=== PATIENT | female | born 1985 | race Caucasian/White ===

== ENCOUNTER → 2016-07-12 | Outpatient (CLI) | payer OTHER ==
[2016-07-12 11:47] LABS: CH 33.2; CHCM 32.9; HCT 38.7 % (34.0-46.0); HDW 2.12; HGB 12.7 gm/dL (11.4-16.0); MCH 33.4 pg (25.0-35.0); MCHC 32.9 g/dL (31.0-37.0); MCV 101.5 fL (80.0-100.0); Macrocytosis Slight; Mean Platelet Volume 6.9; RBC 3.81 m/uL (3.80-5.40); RDW 13.1 % (11.5-15.5); WBC 10.6 k/uL (3.8-10.6)
[2016-07-12 12:01] LABS: ALT 30 U/L (9-52); AST 23 U/L (14-36); Alkaline Phosphatase 35 U/L (38-126); Anion Gap 10 mmol/L; Blood Urea Nitrogen 20 mg/dL (7-17); C Reactive Protein 15.7 mg/L (<10.0); Carbon Dioxide 21 mmol/L (22-30); Chloride 108 mmol/L (98-107); Creatine Kinase 69 U/L (30-135); Glucose 94 mg/dL (74-99); Magnesium 1.8 mg/dL (1.6-2.3); Non-African American GFR(MDRD) >60 (>60 ml/min/1.73 sqM); Potassium 4.1 mmol/L (3.5-5.1); Sodium 139 mmol/L (137-145); Total Bilirubin 0.4 mg/dL (0.2-1.3)
[2016-07-12 12:36] LABS: Hemoglobin A1C 5.7 % (4.2-6.1)
[2016-07-12 12:47] LABS: Vitamin B12 316 pg/mL (239-931)
[2016-07-12 13:13] LABS: Erythrocyte Sedimentation Rate 4 mm/hr (0-20)
[2016-07-12 16:35] LABS: ANA w/Reflex to Titer NEGATIVE (NEGATIVE)
[2016-07-13 05:20] LABS: Cyclic Citrullinated Pep IgG 5 UNITS (<20)
[2016-07-14 14:36] LABS: Vitamin E (Alpha Tocopherol) 813 ug/dL (500-1800)
[2016-07-15 14:39] LABS: Scleroderma 70 Antibody 6 UNITS (<20)
[2016-07-20 19:02] LABS: Nicotinamide 20 ng/mL; Nicotinic Acid None Detected; Nicotinuric Acid None Detected
[2016-07-20 22:33] LABS: Vitamin K 907 pg/mL (80-1160)
[2016-07-23 07:40] LABS: Mis test requested (Blood) PM-Scl Antibody
== END | disposition home or self-care (01) ==
LOC: LABWHC1 11:06
PROVIDERS: ATTEND Psychiatry & Neurology Neurology
DX: G89.29 Other chronic pain (principal)
CPT/HCPCS: 36415; 80053; 82306; 82550; 82607; 83036; 83516; 83519; 83735; 84207; 84425; 84446; 84590; 84591; 84597; 85027; 85652; 86038; 86140; 86200; 86225; 86235

== ENCOUNTER → 2016-12-19 | Outpatient (CLI) | payer OTHER ==
--- NOTE | 2016-12-19 12:50 | MR ---
EXAMINATION TYPE: MR brain wo/w con DATE OF EXAM: 12/19/2016 COMPARISON: 08/13/2012 HISTORY: Headaches, visual disturbance, possible MS TECHNIQUE: Multiplanar, multisequence images of the brain and brainstem is performed without and with IV contras t, utilizing 7 mL intravenous Gadavist . FINDINGS: Diffusion weighted images demonstrate no evidence of a recent infarct or other diffusion ab normality. There is no extra-axial fluid collection or significant white matter signal abnormality. The ventricular system and cisternal spaces are normal in size and appearance. The brain volume is age appropriate. Midline structures demonstrate normal morphology. The cerebellar tonsils appear low-lying in position without evidence of discrete Chiari malformation or tonsillar beaking. Post contrast images demonstrate no abnormal enhancement. The dural venous sinuses appear patent. The visualized sinuses are clear and the globes are intact. There is a stable appearing venous angioma within the left parietal lobe. Changes of mild chronic sin usitis noted. WHITE MATTER: No abnormal signal noted within the visualized white matter. IMPRESSION: 1. No acute process. 2. chronic mild sinusitis. 3. incidental note made of a left parietal venous angioma stable appearance.
== END | disposition home or self-care (01) ==
LOC: RADMRIMAIN 11:27
PROVIDERS: ATTEND Psychiatry & Neurology Neurology
DX: R51 Headache (principal); J32.9 Chronic sinusitis, unspecified
CPT/HCPCS: 70553; A9581

== ENCOUNTER → 2017-07-04 | Outpatient (CLI) | payer OTHER ==
--- NOTE | 2017-07-04 16:50 | MR ---
EXAMINATION TYPE: MR lumbar spine wo con DATE OF EXAM: 07/04/2017 COMPARISON: 08/13/2012 HISTORY: Cervicalgia / Low back pain TECHNIQUE: T1 and T2 axial and sagittal images of the lumbar spine are submitted. FINDINGS: There is no abnormal signal seen within the visualized spinal cord or paraspinal soft tissu es. At L1-2 there is no degenerative disc disease, disc herniation, canal stenosis or foraminal encroachm ent. At L2-3 there is no degenerative disc disease, disc herniation, canal stenosis or foraminal encroachm ent. At L3-4 there is broad-based central disc bulging. There is hypertrophy of the ligamentum flavum. No foraminal encroachment or canal stenosis At L4-5 there is broad-based central disc bulging with mild effacement of thecal sac. No foraminal en croachment. Hypertrophy of the ligamentum flavum noted. At L5-S1 there is central disc bulging with facet arthropathy. No canal stenosis or foraminal encroac hment. IMPRESSION: 1. Central disc bulging at L3-4, L4-5 and L5-S1 with mild effacement of thecal sac but no evidence of foraminal encroachment. No significant interval change. EXAMINATION TYPE: MR cervical spine wo con DATE OF EXAM: 07/04/2017 COMPARISON: 08/13/2012 HISTORY: Cervicalgia / Low back pain TECHNIQUE: T1 sagittal and coronal, T2 sagittal, and gradient echo axial views of the cervical spine are submitted. FINDINGS: The cranial cervical junction is preserved. Motion artifact limits assessment for abnormal signal in the spinal cord. At C2-3 there is No evidence for degenerative disc disease. No disc bulge/herniation or protrusion. N o Canal stenosis. Foramina are patent bilaterally. At C3-4 there is No evidence for degenerative disc disease. No disc bulge/herniation or protrusion. N o Canal stenosis. Foramina are patent bilaterally. At C4-5 there is No evidence for degenerative disc disease. No disc bulge/herniation or protrusion. N o Canal stenosis. Foramina are patent bilaterally. At C5-6 there is No evidence for degenerative disc disease. No disc bulge/herniation or protrusion. N o Canal stenosis. Foramina are patent bilaterally. At C6-7 there is No evidence for degenerative disc disease. Borderline posterior disc bulging. No ta dence for herniation or protrusion. No Canal stenosis. Foramina are patent bilaterally. At C7-T1 there is No evidence for degenerative disc disease. No disc bulge/herniation or protrusion. No Canal stenosis. Foramina are patent bilaterally. IMPRESSION: 1. Stable minimal central disc bulging C6-C7 with no canal stenosis or foraminal encroachment. 2. Question a posterior right thyroid lobe nodule which could be correlated with ultrasound.
== END | disposition home or self-care (01) ==
LOC: RADMRIMAIN 12:23
PROVIDERS: ATTEND Psychiatry & Neurology Pain Medicine
DX: M50.223 Other cervical disc displacement at C6-C7 level (principal); M51.27 Other intervertebral disc displacement, lumbosacral region
CPT/HCPCS: 72141; 72148

== ENCOUNTER → 2017-07-17 | Outpatient (CLI) | payer OTHER ==
--- NOTE | 2017-07-17 09:59 | US ---
EXAMINATION TYPE: US thyroid st tissue head/neck DATE OF EXAM: 07/17/2017 COMPARISON: MRI C-Spine dated 07/04/2017 CLINICAL HISTORY: E04.1 Thyroid Nodule. GLAND SIZE: Right Lobe: 4.9 x 1.7 x 1.3 cm Overall Parenchyma: homogenous Left Lobe: 4.6 x 1.3 x 1.4 cm Overall Parenchyma: homogeneous Isthmus Thickness: 0.2 cm NODULES RIGHT: # of nodules measured on right: 0 LEFT: # of nodules measured on left: 2 1. 0.3 X 0.1 x 0.2 cm cystic nodule at the mid pole with well-defined margins. This nodule is wide r than tall and shows no intranodular vascularity. Prior size: no prior 2. 0.4 X 0.2 x 0.6 cm mixed nodule at the upper pole with well-defined margins. This nodule is wide r than tall and shows intranodular vascularity. Prior size: no prior ISTHMUS: # of nodules measured in the isthmus: 0 Bilateral neck scanned, no evidence of lymphadenopathy. Thyroid gland is normal in size with a few small nodules left thyroid lobe marked by technologist. IMPRESSION: Normal-sized thyroid without greater than 1 cm solid or cystic nodule appreciated bilaterally.
== END | disposition home or self-care (01) ==
LOC: RADUSWWP 09:14
PROVIDERS: ATTEND Family Medicine
DX: E04.1 Nontoxic single thyroid nodule (principal); Z01.818 Encounter for other preprocedural examination
CPT/HCPCS: 76536; 93005

== ENCOUNTER → 2018-08-13 | Outpatient (CLI) | payer MEDICARE, OTHER | END | disposition home or self-care (01) | LOC: LABWHC1 12:57 | PROVIDERS: ATTEND Psychiatry & Neurology Pain Medicine | DX: Z51.81 Encounter for therapeutic drug level monitoring (principal) | CPT/HCPCS: 36415; 93005 ==

== ENCOUNTER → 2018-09-16 | Outpatient (CLI) | payer MEDICARE, OTHER ==
[2018-09-16 15:51] LABS: Iron Saturation 28.05 (12.00-45.00)
[2018-09-16 16:12] LABS: Folate, Serum 18.6 ng/mL
[2018-09-16 16:54] LABS: T4, Free (Free Thyroxine) 0.7 ng/dL (0.80-1.80)
[2018-09-18 13:20] LABS: Vit B1(Thiamine) 87 ug/L (38-122)
== END | disposition home or self-care (01) ==
LOC: LABWHC1 10:13
PROVIDERS: ATTEND Psychiatry & Neurology Pain Medicine
DX: R53.83 Other fatigue (principal)
CPT/HCPCS: 36415; 82607; 82728; 82746; 83540; 83550; 84207; 84425; 84439; 84443; 84466; 84481; 84591

== ENCOUNTER → 2021-04-26 | Outpatient (CLI) | payer MEDICARE, OTHER ==
[2021-04-26 15:03] VITALS: BP 137/76; PULSE 115; RESP 18; TEMP 98.6
--- NOTE | 2021-04-26 15:14 | P.PAINCN ---
History of Present Illness - Reason for Consult Consult date: 04/26/21 Lumbar back pain - Chief Complaint Lumbar back pain - History of Present Illness Ms. Jewell is a 36 -year-old pleasant female came to the [facility] pain clinic along with her mother for lumbar back pain evaluation . Patient was very anxious . KERI from our pain clinic was present during the entire interview, physical exam, and medical decision making process. Patient has ongoing pain for many years patient had history of fibromyalgia, arthritis. Patient was following with Dr Wilber Cartwright. Patient had intrathecal pain pump for chronic pain control, last ITpump refill was more than a year ago as per patient. Patient describes pain is aching, throbbing, constant type of pain. Pain is radiating to bilateral lower extremity. Patient rated pain levels are 8-9 out of 10 in severity. With the help of medications pain levels are 7 out of 10 in severity. Activities making pain worse. Medications, resting, physical therapy, interventional procedures helping in relieving patient's pain. Patient pain some days better than others. Overall activities decreased secondary to pain. Because of the pain sometimes patient is feeling lack of sleep, interest, and energy. Denied any side effects with the medications. Denied any bowel or bladder problems at this time. Patient denies any suicidal or homicidal ideations intent or plan. Patient denies any auditory or visual hallucinations. Patient denied any red flag symptoms related to pain. As per patient she tried multiple intervention procedures, physical therapy, infusion therapies, multiple medication therapy in the past. Which helped marginal pain relief. Review of Systems All systems: negative Constitutional: Denies chills, Denies fever Eyes: denies blurred vision, denies pain Ears, nose, mouth and throat: Denies headache, Denies sore throat Cardiovascular: Denies chest pain, Denies shortness of breath Respiratory: Denies cough Gastrointestinal: Denies abdominal pain, Denies diarrhea, Denies nausea, Denies vomiting Genitourinary: Denies dysuria, Denies hematuria Musculoskeletal: Reports low back pain, Reports myalgias, Reports shooting leg pain Integumentary: Denies pruritus, Denies rash Neurological: Reports numbness, Reports weakness (Anxiety) Psychiatric: Denies anxiety, Denies depression Endocrine: Denies fatigue, Denies weight change Past Medical History Past Medical History: Asthma, Fibromyalgia, Neurologic Disorder, Osteoarthritis (OA), Rheumatoid Arthritis (RA) Additional Past Medical History / Comment(s): DDD, DJD. HAS PAIN PUMP INSERTED- HAS BEEN EMPTY FOR OVER A YEAR History of Any Multi-Drug Resistant Organisms: None Reported Past Surgical History: Joint Replacement, Orthopedic Surgery Additional Past Surgical History / Comment(s): OVARIAN CYST REMOVED. 17 KNEES SX. LT TKA. LT SHOULDER REPAIR. PAIN INJECTIONS. MEDTRONIC PAIN PUMP INSERTION AND REVISION. EPIDURAL INJECTIONS-NUMEROUS Past Anesthesia/Blood Transfusion Reactions: No Reported Reaction Smoking Status: Current every day smoker - Past Family History Father Family Medical History: Unable to Obtain Mother Family Medical History: Asthma Medications and Allergies Home Medications Medication Instructions Recorded Confirmed Type Ibuprofen [Motrin Ib] 200 mg PO Q8H PRN 04/25/21 04/25/21 History Naproxen Sodium [Aleve] 220 mg PO DAILY PRN 04/25/21 04/25/21 History Allergies Allergy/AdvReac Type Severity Reaction Status Date / Time WHOOPING COUGH VACCINE Allergy Unknown Uncoded 04/25/21 12:52 Childhood Physical Exam General: Well-developed, well-nourished, no acute distress HEENT: Normocephalic, and atraumatic Neck: Supple, no neck swelling Psychiatric: Appropriate mood, and affect 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 Sensation grossly intact Lower extremity: Normal strength, and decreased range of motion secondary to pain. Sensation grossly intact Lumbar spine: Paravertebral tenderness: positive Lumbar facet load test : positive Sacroiliac joint tenderness: Positive Thigh thrust test: Unable to perform secondary to pain SI joint compression test: Unable to perform secondary to pain Fabere test: Unable to perform secondary to pain Results Comments: MRI of the lumbar spine done on 07/04/2017 showed Central disc bulge at L3-L4, L4-L5, and L5-S1 with mild effacement of the thecal sac but no evidence of foraminal encroachment. No significant interval changes Assessment and Plan Assessment: Fibromyalgia, generalized body pain Lumbar spondylosis without myelopathy Lumbar radiculopathy Extreme anxiety Tobacco dependence smoking cigarettes Plan: #1 Diagnoses, prognosis, and multiple treatment options including but not limited to physical therapy, interventional therapy, adjunct medication therapy, narcotic medication, and surgical options were discussed with the patient. And all questions were answered to the patient's satisfaction. #2 treatment plan agreement : Patient was thoroughly discussed regarding the treatment options, alternatives, and importance of exercises as tolerated. Patient clearly understood. #3 Patient was counseled on importance of regular exercise. Including matthew chi, aerobic exercises as tolerated. Which helps for chronic pain, and overall well- being. Patient also counseled regarding importance of weight control rolling chronic pain, and overall other health issues. By altering diet habits, minimizing sugar intake, and processed foods helps in minimizing Inflammation. Also discussed with the patient regarding intermittent fasting. Patient counseled regarding smoking associated with chronic pain, worsening inflammation, and smoking effects on liver, and medication metabolism. And encouraged to stop smoking. #4 investigations: MAPS- reviewed , urine drug test- not done #5 diagnostic tests: None #6 consultation : Physical therapy , and psychology evaluation for chronic pain, and anxiety # 7 interventional procedures: L5-S1 epidural steroid injection . Procedure, complications, alternatives discussed with the patient. #8 medications #1 Motrin 800 mg by mouth every 8 hours as needed dispense 90 with no refill patient recommended to drink plenty of water to minimize kidney insult, and recommended to take off the intake of food to minimizing gastric irritation #2 magnesium oxide 400 mg by mouth daily #3 baclofen 10 mg by mouth every 8 hours as needed for muscle spasm dispense 90 with no refill Medication side effects, complications, long-term consequences discussed with the patient. Patient recommended to contact the pain clinic if noticed any issues with given medications. #9 morphine milligrams equivalents dose ( MME) per day: 0 from the pain clinic. # 10 TENS unit's, and percussion massage device #11 disposition: scheduled to follow up with pain clinic in 4 weeks duration. Time with Patient: Greater than 30 PQRS Measure Charge Sheet Measure #130: Documentation of Current Meds in Medical Chart: Patient's medications documented in chart Measure #226: Tobacco Use: Screen & Cessation Intervention: Pt screened for tobacco use AND intervention given Measure #111: Pneumonia Vaccination: Pneumococcal vaccine NOT administered or previously given Measure #47: Advance Care Plan: Advance care planning discussed & documented, pt chose/unable to give Measure #412: Opioid Treatment Agreement: No documentation of signed opioid treatment agreement Measure #408: Opioid Therapy Follow-up Evaluation: Patient had NO f/u eval minimum every 3 months during opioid therapy Measure #317: Preventitive Care & Scrn High Bld Press & F/U: Normal blood pressure, f/u not required Measure #128: Body Mass Index (BMI) Screening & Follow-up: BMI documented within normal parameters Measure #131: Pain Assessment & Follow-up: Pain positive & plan documented Measure #431: Unhealthy Alcohol Use Preventative Care & Scrn: Patient not identified as an unhealthy alcohol user PQRS Narrative: Smoking Status Current every day smoker Pain Intensity [Lower Back] 10 Scale Used Numeric (1 - 10) Hx Alcohol Use (MH) No Home Medications: Ambulatory Orders Ibuprofen [Motrin Ib] 200 mg PO Q8H PRN 04/25/21 Naproxen Sodium [Aleve] 220 mg PO DAILY PRN 04/25/21
== END ==
LOC: PNWHC3 13:06
DX: M79.7 Fibromyalgia (principal); M47.26 Other spondylosis with radiculopathy, lumbar region; F41.9 Anxiety disorder, unspecified; J45.909 Unspecified asthma, uncomplicated; M19.90 Unspecified osteoarthritis, unspecified site; M06.9 Rheumatoid arthritis, unspecified; F17.200 Nicotine dependence, unspecified, uncomplicated; Z79.1 Long term (current) use of non-steroidal anti-inflammatories (NSAID); Z88.7 Allergy status to serum and vaccine
CPT/HCPCS: 99211

== ENCOUNTER 2021-06-28 11:42 | Day surgery (SDC) | payer MEDICARE, OTHER ==
[2021-06-08 16:17] VITALS: BMI 19.7
[~2021-06-28 11:42] MED LIST: LACTATED RINGERS 1,000 ML IV SCH; LIDOCAINE 1% (10MG/ML) FOR IV START INTRADERMA PRN
[2021-06-28 12:02] VITALS: RESP 17; TEMP 97.8
[2021-06-28] MEDS ORDERED: MIDAZOLAM 2 MG/2 ML VIAL ONE (12:10)
[2021-06-28] MEDS ORDERED: fentaNYL (PF) 50 MCG/ML 2 ML AMP ONE (12:10)
[2021-06-28] MEDS ORDERED: IOPAMIDOL M200 10 ML VIAL ONE (12:10)
[2021-06-28] MEDS ORDERED: methylPREDNISolone ACETATE 40 MG/ML 1 ML VIAL ONE (12:10)
--- NOTE | 2021-06-28 12:25 | P.PCN ---
Date of Procedure: 06/28/21 Procedure(s) Performed: PREOPERATIVE DIAGNOSIS: 1- Lumbar radiculopathy 2-Lumbar spondylosis with Facet arthropathy without myelopathy POSTOPERATIVE DIAGNOSIS: Same as preop diagnosis. PROCEDURE 1. Lumbar epidural steroid injection under fluoroscopic guidance at the L5-S1 le arie. (Fluoroscopy imaging was available in radiology department) 2. Lumbar epidurogram. ANESTHESIA: Local with 1% lidocaine 3 ml and , moderate sedation with intravenous Versed 2 mg ,and fentanyle 100 Mcg EBL: Minimal PROCEDURE INDICATION: The patient with low back pain and radiculitis symptoms unresponsive to conservative treatment. Fluoroscopy was used to optimize visualization of the needle placement and to maximize safety. PROCEDURE DESCRIPTION / TECHNIQUE: The patient was seen and identified in the preoperative area. Risks, benefits, complications including but not limited to infections ,bleeding ,allergic reaction to the medications ,nerve damage and not complete pain releife , and alternatives were discussed with the patient. The patient agreed to proceed with the procedure and signed the consent. IV was started, and vital signs were stable. Patient was taken to the OR and time out was completed. The patient was placed in the prone position on procedure table and a pillow was placed under the abdomen to reduce lumbar lordosis. The lumbosacral area was prepped and draped in the usual sterile fashion.ere closely monitored during the procedure. Conscious sedation was used during the procedure to decrease patients anxiety. Vital signs was monitered during the entire procedure. Using anterior-posterior fluoroscopy, the L5-S1 interlaminar space was identi fied and the skin over this site was marked and then infiltrated with 1% lidocaine subcutaneously. Subsequently, a 20-gauge Tuohy epidural needle was inserted and advanced toward the epidural space using the ``Loss of resistance technique and guided by AP and lateral fluoroscopy. The correct needle position in the epidural space was verified with the injection of 2 mL of the water soluble contrast dye Isovue 200 contrast and observing an excellent epidurogram with the epidural spread of the dye, after negative aspiration for blood and CSF and in the absence of paresthesias. Again after negative aspiration, a 6 ml mixture containing 80 mg of Depo-medrol , and 2 ml of preservative free Normal Saline, and 2 ml of preservative free lidocaine 1% solution was injected and a washout of epidurogram was seen. Needle was withdrawn intact, skin was cleansed, and bandages were applied. COMPLICATIONS: None DISPOSITION / PLANS: The patient was placed in a supine position and transferred to the recovery area in a stable condition for observation. There was no evidence of lower extremity motor or sensory deficit after the procedure. Patient was discharged from the recovery room after meeting discharge criteria. Home discharge instructions were given to the patient by the staff. The patient was reexamined prior to discharge. The patient will schedule a follow up in the clinic in 2-4 weeks. note= patient had intrathecal pain pump, placed several years ago, and patient is not on any medication intrathecally, and she wished to have the pump removed, I will refer patient to Dr. Underwood , neurosurgy, for evaluation for removal of intrathecal pain pump
[2021-06-28] MEDS ORDERED: IV FLUID CONTINUATION 1,000 ML IV ONE (12:30)
[2021-06-28 12:46] VITALS: BP 108/52; PULSE 61
--- NOTE | 2021-06-28 12:58 | FL ---
Fluoroscopy HISTORY: Pain 2 seconds fluoroscopy time supplied to the referring clinician. 1 intraoperative C-arm images docume nt the procedure. See dictated report from anesthesia.
== END 2021-06-28 13:07 | disposition home or self-care (01) ==
LOC: ORPAIN 11:42
PROVIDERS: ATTEND Specialist
DX: M47.26 Other spondylosis with radiculopathy, lumbar region (principal); Z88.7 Allergy status to serum and vaccine
CPT/HCPCS: 81025; 62323; J2250; J1030; J3010; Q9966; 99152

== ENCOUNTER 2021-08-02 13:45 | Day surgery (SDC) | payer MEDICARE, OTHER ==
[2021-08-01 08:06] VITALS: BMI 19.4
[~2021-08-02 13:45] MED LIST changes: -LIDOCAINE 1% (10MG/ML) FOR IV START INTRADERMA PRN
[2021-08-02 14:02] VITALS: RESP 18; TEMP 98.5
[2021-08-02] MEDS ORDERED: IOPAMIDOL M200 10 ML VIAL ONE (14:17)
[2021-08-02] MEDS ORDERED: methylPREDNISolone ACETATE 40 MG/ML 1 ML VIAL ONE (14:17)
[2021-08-02] MEDS ORDERED: fentaNYL (PF) 50 MCG/ML 2 ML AMP ONE (14:17)
[2021-08-02] MEDS ORDERED: MIDAZOLAM 2 MG/2 ML VIAL ONE (14:17)
[2021-08-02] MEDS ORDERED: IV FLUID CONTINUATION 800 ML IV ONE (14:33)
--- NOTE | 2021-08-02 14:35 | P.PCN ---
Date of Procedure: 08/02/21 Description of Procedure: Procedure: 1. L5-S1 Epidural steroid injection under fluoroscopic guidance #2, 2. Lumbar epidurogram PREOPERATIVE DIAGNOSIS: Lumbar degenerative disc disease, and Lumbar radiculopathy. POSTOPERATIVE DIAGNOSIS: Lumbar degenerative disc disease, and Lumbar rad iculopathy. SURGEON: Anderson Lemus ANESTHESIA: Local with 1% lidocaine, and IV sedation: Versed 2 mg, and 100 g of fentanyl. EBL: None. Specimen removed: None Fluoroscopic image: saved to electronic medical records PROCEDURE INDICATION: The patient had history of Lumbar degenerative disc disease and Lumbar radiculopathy. Patient had more than 70% pain relief with the previous epidural steroid injection for 3 weeks. Failed to conservative therapy. Came here for repeat epidural steroid injection. PROCEDURE DESCRIPTION: The patient was seen and identified in the preoperative area. Risks, benefits, complications, and alternatives were discussed with the patient. The patient agreed to proceed with the procedure and signed the consent. IV was started, and vital signs were stable. Patient was taken to the procedure area, and time out was completed. The patient was placed in the prone position on procedure table and a pillow was placed under the abdomen to reduce lumbar lordosis. The lumbosacral area was prepped and draped in the usual sterile fashion. Critical pause was taken. Vital signs were closely monitored during the procedure. Using anterior-posterior fluoroscopy, the L5-S1 interlaminar space was identified, and skin and deeper tissues were localized with 1% lidocaine. Using anterior-posterior fluoroscopy, lateral fluoroscopy, and [id number] technique, a 20 gauge 3.5 Tuohy epidural needle entered the epidural space. After negative aspiration of CSF and blood with no paresthesias, 2 ml of [id number] contrast dye was injected and an excellent epidurogram was seen. Again after negative aspiration of CSF and blood with no paresthesias, 10 mL of block solution was injected into the epidural space. Block solution contained 80 mg of Depo-Medrol, and 9 mL of preservative-free normal saline. Needle was withdrawn intact, skin was cleansed, and bandages were applied. COMPLICATIONS: None. DISPOSITION / PLANS: The patient was placed in a supine position and transferred to the recovery area in a stable condition for observation. Patient was discharged from the recovery room after meeting discharge criteria. Home discharge instructions given to the patient by the staff. The patient was reexamined prior to discharge. The patient will schedule a follow up in the clinic in 4 weeks.
--- NOTE | 2021-08-02 14:42 | FL ---
EXAMINATION TYPE: FL guided pain mgmt statistic DATE OF EXAM: 08/02/2021 CLINICAL HISTORY: Lumbar epidural injection TECHNIQUE: Fluoroscopic-guided lumbar epidural injection FINDINGS: Fluoroscopic guidance was provided during the procedure. A total of 3 seconds of fluorosco pic time was utilized during the procedure and 2 spot images were acquired. IMPRESSION: As Above.
[2021-08-02 15:00] VITALS: BP 122/81; PULSE 98
== END 2021-08-02 15:21 | disposition home or self-care (01) ==
LOC: ORPAIN 13:45
DX: M51.16 Intervertebral disc disorders with radiculopathy, lumbar region (principal); F17.210 Nicotine dependence, cigarettes, uncomplicated; F41.9 Anxiety disorder, unspecified; M79.7 Fibromyalgia; J45.909 Unspecified asthma, uncomplicated; I95.9 Hypotension, unspecified; Z88.7 Allergy status to serum and vaccine; Z98.890 Other specified postprocedural states
CPT/HCPCS: 81025; 62323; J2250; J1030; J3010; Q9966

== ENCOUNTER → 2021-08-27 | Outpatient (CLI) | payer MEDICARE, OTHER ==
[2021-08-27 14:47] VITALS: BP 112/77; PULSE 100; RESP 18; TEMP 99.2
--- NOTE | 2021-08-27 15:02 | P.PN ---
Subjective Progress Note Date: 08/27/21 Principal diagnosis: A 36 yr old female with at side with a history of severe and chronic low back pain secondary to lumbar degenerative disc diseases and lumbar spondylosis with facet arthropathy presents today for evaluation. She states she has an empty pain pump placed in her lumbosacral spine for over a year which beeps every 5 minutes or so. She has been unable to make contact with the [employer] physician whom inserted it in her spine. Pain level is currently at 9/10 in intensity, constant, dull, throbbing and achy in character with radiating pain of a sharp, shooting, deep, burning character to the LEs, L>R. Pain is provoked by any type of movement as well as inactivity. Pt has to reposition at bedtime because pain interrupts her sleep. Pain is alleviated very minimally with medications (Baclofen, Motrin, Aleve), topicals (Lidocaine, Biofreeze gel), injections, repositioning, PT integreated with massage approximately 10 yrs ago, laying supine and rest. Interventional pain procedures completed include LESI L5-S1 x 2 without pain relief Patient is currently on Aleve, Motrin, Baclofen Patient denies any side effects of the medication(s), denies excessive drowsiness or sleepiness, denies suicidal ideation and reports that the current pain medication is helping to control the pain and improve activities of daily living. Patient denies any motor or sensory deficits. Patient denies any fever or night sweats, denies any change in the bowel movements or urination. Physical Examination: -Constitutional: Cooperative. Not in acute distress . -HEENT: Neck is supple. No lymphadenopathy. No thyromegaly. Normal thyroid size. Eyes: No ptosis , no icterus, no photophobia. ENT: No auditory deficits. Normal oropharynx. No Thrush. - Respiratory: Chest clear to auscultations bilaterally. No wheezing. No rhonchi. - Cardiovascular: Regular rate and rhythm. S1 / S2 , no S3 , no S4. - Gastrointestinal: Abdomen soft no tenderness. Bowel sounds positive in all four quadrants. No organomegaly. - Genitourinary: Deferred. - Neurologic: Cranial nerve II to XII intact. No focal neurological deficits. - Psychatric: Alert & oriented x 3. Matching mood & appropriate affect. Judgment and insight intact. - Lymphatic: No Lymphadenopathy. - Musculoskeletal: Cervical spine: Muscle bulk/ tone/ strength in the bilateral upper extremities normal. Facet loading test cervical area positive. Lumbar spine: Motor bulk/ tone/ strength lower extremities , thigh and legs : 5/5 Deep tendon reflexes : Normal Knee Jerk. Normal Ankle Jerk . Vertebral body tenderness to palpation over L3, L4, L5 Lumbar Facet Loading Test positive Straight Leg Raise: positive at 30 degrees right side/ left side Gaenslen's Test positive Sacral spine : Severe tenderness over the Sacroiliac joint: right side / left side Range of motion: Flexion of the lumbar spine <60 degrees Range of motion: Extension of the lumbar spine <20 degrees Gaenslen's Test positive Ariadna test: positive right side / left side Assessment and plan: Chronic low back pain secondary to lumbar degenerative disc disease , lumbar spondylosis with facet arthropathy without myelopathy She will follow up with a neurologist for refill of Amordaphenil as well as for management of migraine headaches. She is to call the [facility] consultation, number on the back of the card provided, to deactivate her pain pump. Chronic and current use of high-risk medication (Opioids). The patient was counseled about risk of opioid use, psychological risk associated with opioids and was orally counseled to not overuse , divert or sell medications. Pt is to store medication in a safe location. The patient is counseled against driving while using narcotic medications and also not to use alcohol or any illicit recreational drugs. Patient verbalized understanding that the lack of compliance will result in failure to renew narcotic prescription(s) as well as possible discharge from the clinic Diagnoses, prognosis and treatment options including but not limited to physical therapy, surgical interventions, interventional therapies and medication management including narcotics and adjuvant medication were discussed. All patient questions answered MAPS reviewed and it was appropriate. Will clinic urine for UDS at next visit Opioid agreement signed today 08/27/21 Prescription for Percocet 10/325 #60 1 refill, baclofen 10mg #90 1 refill, Motrin 800mg #90 1 refill, Zofran 4mg #90 1 refill. I have spent 31 minutes on patient care today. Dr Toro was available by phone for the evaluation of this patient. The time was used to review the medical records including relevant urine studies and Prescription history (MAPs), review of the available imaging, evaluation and examination of the patient, coordination of care with the medical staff and if applicable referring physicians, as well as creation of the medical record Objective - Vital Signs Vital signs: Intake & Output 08/26/21 08/27/21 08/27/21 18:59 06:59 18:59 Weight 56.699 kg PQRS Measure Charge Sheet Mode of Arrival: Ambulatory - Pain Location Bilateral Lower Back Non-Pharmacological Interventions: Ice, Inactivity, Position/Reposition Pharmacological Interventions: Epidural, PRN Medication, Topical Medication PQRS Narrative: Smoking Status Current every day smoker Blood Pressure 112/77 Pain Intensity [Bilateral 9 Lower Back] Scale Used Numeric (1 - 10) Hx Alcohol Use (MH) No Home Medications: Ambulatory Orders Naproxen Sodium [Aleve] 220 mg PO DAILY PRN 04/25/21 Baclofen 10 mg PO TID 30 Days #90 tab 08/27/21 Ibuprofen [Motrin Ib] 800 mg PO Q8H PRN 30 Days #90 tab 08/27/21 Ondansetron [Zofran] 4 mg PO Q8HR PRN 30 Days #90 tab 08/27/21 oxyCODONE-APAP 10-325MG [Percocet 10-325 mg] 1 tab PO Q12HR PRN 3 Days #60 tab 08/27/21 oxyCODONE-APAP 10-325MG [Percocet 10-325 mg] 1 tab PO Q12HR PRN 30 Days #60 tab 08/27/21 oxyCODONE-APAP 10-325MG [Percocet 10-325 mg] 1 tab PO Q12HR PRN 30 Days #60 tab 08/27/21 oxyCODONE-APAP 10-325MG [Percocet 10-325 mg] 1 tab PO Q12HR PRN 30 Days #60 tab 08/27/21
== END | disposition home or self-care (01) ==
LOC: PNWHC3 13:42
PROVIDERS: ATTEND Specialist
DX: M47.896 Other spondylosis, lumbar region (principal); M51.36 Other intervertebral disc degeneration, lumbar region
CPT/HCPCS: 99211

== ENCOUNTER → 2021-10-18 | Outpatient (CLI) | payer MEDICARE, OTHER ==
[2021-10-18 15:13] VITALS: BP 108/68; PULSE 104; RESP 18; TEMP 99.1
--- NOTE | 2021-10-18 15:14 | P.PAINPG ---
PQRS Measure Charge Sheet Comment: A 36 yr old female with daughter at side with a history of severe and chronic low back pain secondary to lumbar degenerative disc diseases and lumbar spondylosis with facet arthropathy presents today for medication refills. Pt underwent a LESI L5-S1 in July 2021 and stated she experienced <50% pain relief s/p procedure. [employer] implantable pain pump deactivated by miles so it will no longer beep every 10 minutes. It has been void of dilaudid for 2+ years. Pain level is currently at 8/10 in intensity, constant, throbbing/hot in character with shooting towards the BLEs. Pain is provoked by standing, twisting, walking. Pain is alleviated with medications (Perocet 10/325mg #60, Baclofen 10mg #90, Ibuprofen 800mg #90), topicals which provide no relief, PT years ago which provoked pain, LESIs in the past which has not completely alleviated pain, repositioning and rest. Pt requested more narcotic medications today, stating she needs Percocet more than twice a day as she wakes up early. Pt also was disinterested in additional procedures. Will add Lidoderm 5% to regimen. Interventional pain procedures completed include LESI L5-S1 x 1 Patient is currently on Perocet 10/325mg #60, Baclofen 10mg #90, Ibuprofen 800mg #90 Patient denies any side effects of the medication(s), denies excessive drowsi ness or sleepiness, denies suicidal ideation and reports that the current pain medication is helping to control the pain and improve activities of daily living. Patient denies any motor or sensory deficits. Patient denies any fever or night sweats, denies any change in the bowel movements or urination. Physical Examination: -Constitutional: Cooperative. Not in acute distress . - Neurologic: Cranial nerve II to XII intact. No focal neurological deficits. - Psychatric: Alert & oriented x 3. Matching mood & appropriate affect. Judgment and insight intact. - Musculoskeletal: Cervical spine: Muscle bulk/ tone/ strength in the bilateral upper extremities normal Vertebral body tenderness to palpation over Spurling test positive Distraction test positive Facet loading test positive Thoracic spine Muscle bulk / tone/ strength in the bilateral paraspinal muscles normal Vertebral body tender to palpation over Facet loading test positive Lumbar spine: Motor bulk/ tone/ strength lower extremities , thigh and legs : 5/5 Deep tendon reflexes : Normal Knee Jerk. Normal Ankle Jerk . Vertebral body tenderness to palpation over L5 Lumbar Facet Loading Test positive Straight Leg Raise: positive at 30 degrees right side/ left side Gaenslen's Test positive Sacral spine : Severe tenderness over the Sacroiliac joint: right side / left side Range of motion: Flexion of the lumbar spine <60 degrees Range of motion: Extension of the lumbar spine <20 degrees Gaenslen's Test positive Tiago's Test positive Ariadna test: positive right side / left side Thigh Thrust Test Sacral Thrust Test Assessment and plan: Chronic low back pain secondary to lumbar degenerative disc disease , lumbar spondylosis with facet arthropathy without myelopathy Chronic and current use of high-risk medication (Opioids). The patient was counseled about risk of opioid use, psychological risk associated with opioids and was orally counseled to not overuse , divert or sell medications. Pt is to store medication in a safe location. The patient is counseled against driving while using narcotic medications and also not to use alcohol or any illicit recreational drugs. Patient verbalized understanding that the lack of compliance will result in failure to renew narcotic prescription(s) as well as possible discharge from the clinic Diagnoses, prognosis and treatment options including but not limited to physical therapy, surgical interventions, interventional therapies and medication management including narcotics and adjuvant medication were discussed. All patient questions answered MAPS reviewed and it was appropriate. Prescription refill for Perocet 10/325mg #60, Baclofen 10mg #90, Ibuprofen 800mg #90 w 1 refill. Add lidoderm 5% patches #30 w 1 refill. I have spent less than 30 minutes on patient care today. Dr Toro was available by phone for the evaluation of this patient. The time was used to review the medical records including relevant urine studies and Prescription history (MAPs), review of the available imaging, evaluation and examination of the patient, coordination of care with the medical staff and if applicable referring physicians, as well as creation of the medical record PQRS Narrative: Smoking Status Current every day smoker Hx Alcohol Use (MH) No Home Medications: Ambulatory Orders Naproxen Sodium [Aleve] 220 mg PO DAILY PRN 04/25/21 oxyCODONE-APAP 10-325MG [Percocet 10-325 mg] 1 tab PO Q12HR PRN 3 Days #60 tab 08/27/21 oxyCODONE-APAP 10-325MG [Percocet 10-325 mg] 1 tab PO Q12HR PRN 30 Days #60 tab 08/27/21 oxyCODONE-APAP 10-325MG [Percocet 10-325 mg] 1 tab PO Q12HR PRN 21 Days #46 tab 09/19/21 Baclofen 10 mg PO TID 30 Days #90 tab 10/18/21 Ibuprofen [Motrin Ib] 800 mg PO Q8H PRN 30 Days #90 tab 10/18/21 Lidocaine 5% Patch [Lidoderm] 1 each TP QAM 30 Days #30 patch 10/18/21 Ondansetron [Zofran] 4 mg PO Q8HR PRN 30 Days #90 tab 10/18/21 oxyCODONE-APAP 10-325MG [Percocet 10-325 mg] 1 tab PO Q12HR PRN 30 Days #60 tab 10/18/21 oxyCODONE-APAP 10-325MG [Percocet 10-325 mg] 1 tab PO Q12HR PRN 30 Days #60 tab 10/18/21 Controlled Substance Measures - Controlled Substance Measures Is patient prescribed a controlled substance at discharge?: Yes When asked, does pt state using other controlled substances?: No If prescribed controlled substance>3 days was MAPS reviewed?: Yes If Rx opioid, was Start Talking consent form obtained?: Yes If opioid is for acute pain is fill amount 7 days or less?: Yes Was information provided regarding opioid addiction?: Yes
== END ==
LOC: PNWHC3 12:52
PROVIDERS: ATTEND Specialist
DX: M51.36 Other intervertebral disc degeneration, lumbar region (principal); M47.816 Spondylosis without myelopathy or radiculopathy, lumbar region; G89.29 Other chronic pain; Z79.891 Long term (current) use of opiate analgesic; Z88.7 Allergy status to serum and vaccine; F17.200 Nicotine dependence, unspecified, uncomplicated
CPT/HCPCS: 99211

== ENCOUNTER → 2022-02-07 | Outpatient (CLI) | payer MEDICARE, OTHER ==
[2022-02-07 13:30] VITALS: BP 115/73; PULSE 89; RESP 18
--- NOTE | 2022-02-07 14:38 | P.PAINPG ---
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 Pain level is currently at 7/10 in intensity, constant, localized in the mid to lower aspect of the lumbar spine, achy in character w shooting towards the BLEs. Pain is provoked by standing/ walking for periods of 20 min or more. Pain is alleviated with medications, injections from this clinic and from Dr Hylton, PT in the past, home based stretching regimen, use of a lumbar support brace, repositioning and rest. Interventional pain procedures completed include LESI L5-S1 x2 Patient is currently on Percocet 10/325mg #60, Ibuprofen, Baclofen, Zofran Patient denies any side effects of the medication(s), denies excessive drowsiness or sleepiness, denies suicidal ideation and reports that the current pain medication is helping to control the pain and improve activities of daily living. Patient denies any motor or sensory deficits. Patient denies any fever or night sweats, denies any change in the bowel movements or urination. Physical Examination: -Constitutional: Cooperative. Not in acute distress . - Neurologic: Cranial nerve II to XII intact. No focal neurological deficits. - Psychatric: Alert & oriented x 3. Matching mood & appropriate affect. Judgment and insight intact. - Musculoskeletal: Cervical spine: Muscle bulk/ tone/ strength in the bilateral upper extremities normal Vertebral body tenderness to palpation over Spurling test positive Distraction test positive Facet loading test positive Thoracic spine Muscle bulk / tone/ strength in the bilateral paraspinal muscles normal Vertebral body tender to palpation over Facet loading test positive Lumbar spine: Motor bulk/ tone/ strength lower extremities , thigh and legs : 5/5 Deep tendon reflexes : Normal Knee Jerk. Normal Ankle Jerk . Vertebral body tenderness to palpation over L3, L4, L5 Lumbar Facet Loading Test positive Straight Leg Raise: positive at 30 degrees right side/ left side Gaenslen's Test positive Sacral spine : Severe tenderness over the Sacroiliac joint: right side / left side Range of motion: Flexion of the lumbar spine <60 degrees Range of motion: Extension of the lumbar spine <20 degrees Gaenslen's Test positive Tiago's Test positive Ariadna test: positive right side / left side Thigh Thrust Test Sacral Thrust Test Assessment and plan: Chronic low back pain secondary to lumbar degenerative disc disease , lumbar spondylosis with facet arthropathy without myelopathy Chronic and current use of high-risk medication (Opioids). The patient was counseled about risk of opioid use, psychological risk associated with opioids and was orally counseled to not overuse , divert or sell medications. Pt is to store medication in a safe location. The patient is counseled against driving while using narcotic medications and also not to use alcohol or any illicit recreational drugs. Patient verbalized understanding that the lack of compliance will result in failure to renew narcotic prescription(s) as well as possible discharge from the clinic Diagnoses, prognosis and treatment options including but not limited to physical therapy, surgical interventions, interventional therapies and medication management including narcotics and adjuvant medication were discussed. All patient questions answered MAPS reviewed and it was appropriate. MRI without contrast of the lumbar spine faxed to radiology. Should be scheduled to complete MRI prior to next follow up. UDS from 12/17/21 reviewed and +ETOH. Discussed violation of narcotics agreement to pt. Redo of UDS today 02/07/22 Prescription refill for Percocet 10/325mg #60, Ibuprofen 800mg #60, Baclofen, Zofran w 1 RF I have spent less than 30 minutes on patient care today. Dr Toro was available by phone for the evaluation of this patient. The time was used to review the medical records including relevant urine studies and Prescription history (MAPs), review of the available imaging, evaluation and examination of the patient, coordination of care with the medical staff and if applicable referring physicians, as well as creation of the medical record PQRS Narrative: Smoking Status Current every day smoker Hx Alcohol Use (MH) No Home Medications: Ambulatory Orders Naproxen Sodium [Aleve] 220 mg PO DAILY PRN 04/25/21 Lidocaine 5% Patch [Lidoderm] 1 each TP QAM 30 Days #30 patch 10/18/21 Ondansetron [Zofran] 4 mg PO Q8HR PRN 30 Days #90 tab 10/18/21 oxyCODONE HCL/ACETAMINOPHEN [Percocet 10-325 mg Tablet] 1 each PO Q8HR PRN 7 Days #14 tab 10/19/21 Psyllium Husk [Metamucil] 0.4 gm PO Q24HR PRN 30 Days #1 kit 10/31/21 Baclofen 10 mg PO TID 30 Days #90 tab 12/13/21 Ibuprofen [Motrin Ib] 800 mg PO Q8H PRN 30 Days #90 tab 12/13/21 Controlled Substance Measures - Controlled Substance Measures Is patient prescribed a controlled substance at discharge?: Yes When asked, does pt state using other controlled substances?: No If prescribed controlled substance>3 days was MAPS reviewed?: Yes If Rx opioid, was Start Talking consent form obtained?: Yes Was information provided regarding opioid addiction?: Yes
== END | disposition home or self-care (01) ==
LOC: PNWHC3 13:08
PROVIDERS: ATTEND Specialist
DX: Z51.81 Encounter for therapeutic drug level monitoring (principal); M51.36 Other intervertebral disc degeneration, lumbar region
CPT/HCPCS: 80307; G0482; G0463; 99212

== ENCOUNTER → 2022-03-15 | Outpatient (CLI) | payer MEDICARE, OTHER ==
--- NOTE | 2022-03-16 03:58 | MR ---
EXAMINATION TYPE: MR lumbar spine wo con DATE OF EXAM: 03/15/2022 COMPARISON: 07/04/2017 HISTORY: Low back pain that radiates down both legs, has pain pump. Multiplanar multi echo imaging of the lumbar spine performed with no contrast. The lumbar vertebrae have normal alignment. Disc spaces are fairly normal. No lumbar disc herniation. No spinal stenosis. Neural foramina are widely patent. Lumbar nerve roots appear normal. No focal salas ne destruction. The posterior pelvis are intact. There is no lumbar paraspinal mass. The sacroiliac joints are intact. IMPRESSION: Negative MRI scan of the lumbar spine. No change compared to old exam. No lumbar disc herniation or s zenaida stenosis.
== END | disposition home or self-care (01) ==
LOC: RADMRIMAIN 18:30
PROVIDERS: ATTEND Specialist
DX: M51.36 Other intervertebral disc degeneration, lumbar region (principal)
CPT/HCPCS: 72148

== ENCOUNTER → 2022-04-04 | Outpatient (CLI) | payer MEDICARE, OTHER ==
[2022-04-04 14:07] VITALS: BP 112/67; PULSE 57; RESP 18; TEMP 97.8
--- NOTE | 2022-04-04 14:40 | P.PAINPG ---
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 Reviewed UDS results w patient as this was the 2nd violation of Narcotics agre ement (UDS 02/07/22 and 12/13/21), having ETOH metabolites in sample. MRI of the lumbar spine was negative for DDD, stenosis or neuroforminal stenoses. Pain level is currently at 10 /10 in intensity, constant, localized in the lumbar spine, burning/ sharp in character w shooting towards the BLEs. Pain is provoked by lifting, bending. Pain is alleviated with injections, medications, home exercise as tolerated and rest. Interventional pain procedures completed include ELIDA L5-S1 Patient is currently on Percocet, Motrin, Baclofen, Zofran Patient denies any side effects of the medication(s), denies excessive drowsiness or sleepiness, denies suicidal ideation and reports that the current pain medication is helping to control the pain and improve activities of daily living. Patient denies any motor or sensory deficits. Patient denies any fever or night sweats, denies any change in the bowel movements or urination. Physical Examination: -Constitutional: Cooperative. Not in acute distress . - Neurologic: Cranial nerve II to XII intact. No focal neurological deficits. - Psychatric: Alert & oriented x 3. Matching mood & appropriate affect. Judgment and insight intact. - Musculoskeletal: Cervical spine: Muscle bulk/ tone/ strength in the bilateral upper extremities normal Vertebral body tenderness to palpation over Spurling test positive Distraction test positive Facet loading test positive Thoracic spine Muscle bulk / tone/ strength in the bilateral paraspinal muscles normal Vertebral body tender to palpation over Facet loading test positive Lumbar spine: Motor bulk/ tone/ strength lower extremities , thigh and legs : 5/5 Deep tendon reflexes : Normal Knee Jerk. Normal Ankle Jerk . Vertebral body tenderness to palpation over Lumbar Facet Loading Test positive Straight Leg Raise: positive at 30 degrees right side/ left side Gaenslen's Test positive Sacral spine : Severe tenderness over the Sacroiliac joint: right side / left side Range of motion: Flexion of the lumbar spine <60 degrees Range of motion: Extension of the lumbar spine <20 degrees Gaenslen's Test positive Ariadna test: positive right side / left side Thigh Thrust Test Sacral Thrust Test Imaging: MRI without contrast of the lumbar spine reviewed Assessment and plan: Chronic low back pain secondary to lumbar degenerative disc disease, spondylosis with facet arthropathy without myelopathy Chronic and current use of high-risk medication (Opioids). The patient was counseled about risk of opioid use, psychological risk associated with opioids and was orally counseled to not overuse , divert or sell medications. Pt is to store medication in a safe location. The patient is counseled against driving while using narcotic medications and also not to use alcohol or any illicit recreational drugs. Patient verbalized understanding that the lack of compliance will result in failure to renew narcotic prescription(s) as well as possible discharge from the clinic Diagnoses, prognosis and treatment options including but not limited to physical therapy, surgical interventions, interventional therapies and medication management including narcotics and adjuvant medication were discuss ed. All patient questions answered MAPS reviewed and it was appropriate. Prescription for Percocet 10/325mg, Zofran, Ibuprofen #45, Baclofen #45 without refills. Pt discharged from medical management for violation of narcotics agreement. I have spent less than 30 minutes on patient care today. Dr Toro was available by phone for the evaluation of this patient. The time was used to review the medical records including relevant urine studies and Prescription history (MAPs), review of the available imaging, evaluation and examination of the patient, coordination of care with the medical staff and if applicable referring physicians, as well as creation of the medical record - Pain Location Lower Back Non-Pharmacological Interventions: Chiropractic Treatment, Home Exercise, Ice, Inactivity, Physical Therapy, Position/Reposition, Stretching Pharmacological Interventions: Epidural, PRN Medication PQRS Narrative: Smoking Status Current every day smoker Hx Alcohol Use (MH) No Home Medications: Ambulatory Orders Naproxen Sodium [Aleve] 220 mg PO DAILY PRN 04/25/21 Lidocaine 5% Patch [Lidoderm] 1 each TP QAM 30 Days #30 patch 10/18/21 Psyllium Husk [Metamucil] 0.4 gm PO Q24HR PRN 30 Days #1 kit 10/31/21 oxyCODONE HCL/ACETAMINOPHEN [Percocet 10-325 mg] 1 each PO Q12HR PRN 30 Days #60 tab 02/07/22 diazePAM [Valium] 5 mg PO DIRECTED 1 Days #2 tab 02/25/22 Baclofen 10 mg PO TID 15 Days #45 tab 04/04/22 Ibuprofen 800 mg PO Q8H PRN 15 Days #45 tab 04/04/22 Ondansetron [Zofran] 4 mg PO Q8HR PRN 15 Days #45 tab 04/04/22 oxyCODONE HCL/ACETAMINOPHEN [Percocet 10-325 mg] 1 each PO Q12H PRN 15 Days #30 tab 04/04/22 Controlled Substance Measures - Controlled Substance Measures Is patient prescribed a controlled substance at discharge?: Yes When asked, does pt state using other controlled substances?: No If prescribed controlled substance>3 days was MAPS reviewed?: Yes If Rx opioid, was Start Talking consent form obtained?: Yes Was information provided regarding opioid addiction?: Yes
== END ==
LOC: PNWHC3 13:19
PROVIDERS: ATTEND Specialist
DX: M47.816 Spondylosis without myelopathy or radiculopathy, lumbar region (principal); M51.36 Other intervertebral disc degeneration, lumbar region; Z79.891 Long term (current) use of opiate analgesic; F17.200 Nicotine dependence, unspecified, uncomplicated; Z88.7 Allergy status to serum and vaccine
CPT/HCPCS: 99211

== ENCOUNTER → 2022-12-03 | Outpatient (CLI) | payer MEDICARE, OTHER ==
[2022-12-03 20:13] LABS: Prealbumin 35.4 mg/dL (18.0-42.0)
[2022-12-03 21:19] LABS: Bacteria,Urine None Seen (None Seen)
[2022-12-03 21:24] LABS: Basophils # (A) 0.06 X 10*3/uL (0.00-0.10); Basophils % (A) 0.8 %; Eosinophils # (A) 0.19 X 10*3/uL (0.04-0.35); Eosinophils % (A) 2.7 %; HCT 40.5 % (37.2-46.3); HGB 12.9 d/dL (12.0-15.0); Lymphocytes # (A) 2.41 X 10*3/uL (0.90-5.00); Lymphocytes % (A) 33.9 %; MCH 33.2 pg (27.0-32.0); MCHC 31.9 d/dL (32.0-37.0); MCV 104.4 FL (80.0-97.0); Mean Platelet Volume 9.9 FL (9.5-12.2); Monocytes # (A) 0.64 X 10*3/uL (0.20-1.00); NRBC Per 100 WBC 0 X 10*3/uL (0.00-0.01); Neutrophils # (A) 3.79 X 10*3/uL (1.80-7.70); Neutrophils % (A) 53.5 %; Platelet Count 225 X 10*3/uL (140-440); RBC 3.88 X 10*6/uL (4.10-5.20); RDW 13.2 % (11.5-14.5)
[2022-12-03 21:27] LABS: ALT 14 U/L (8-44); AST 23 U/L (13-35); Albumin 4.7 d/dL (3.8-4.9); Albumin/Globulin Ratio 2.35 Ratio (1.60-3.17); Alkaline Phosphatase 35 U/L (41-126); Blood Urea Nitrogen 17.5 mg/dL (9.0-27.0); Carbon Dioxide 23.1 mmol/L (21.6-31.8); Chloride 106 mmol/L (96-109); Glucose 84 mg/dL (70-110); Potassium 4.2 mmol/L (3.5-5.5); Sodium 143 mmol/L (135-145); Total Bilirubin 0.3 mg/dL (0.3-1.2); Total Protein 6.7 d/dL (6.2-8.2)
[2022-12-03 21:39] LABS: Appearance,Urine Turbid (Clear); Bilirubin,Urine Negative (Negative); Blood,Urine Negative (Negative); Color,Urine Yellow (Yellow); Ketones,Urine Negative (Negative); Nitrite,Urine Negative (Negative); Specific Gravity,Urine 1.027 (1.001-1.030)
== END | disposition home or self-care (01) ==
LOC: LABWHC1 11:05
DX: Z01.812 Encounter for preprocedural laboratory examination (principal)
CPT/HCPCS: 36415; 80053; 81001; 83036; 84134; 85025